=== PATIENT | female | born 1990 | race Caucasian/White ===

== ENCOUNTER 2024-10-16 09:23 | Emergency (ER) | payer OTHER, SELFPAY ==
[2024-10-16 09:26] VITALS: BP 119/75
--- NOTE | 2024-10-16 11:10 | ED.GENMED ---
History of Present Illness
General
Chief Complaint: Fever
Time Seen by Provider: 10/16/24 10:45
History of Present Illness
History of Present Illness:
34-year-old female, currently 13 weeks gestational age presents to the emergency department for evaluation of fever chills, right-sided low back pain, nasal congestion, coughing beginning last night. She is primarily concerned about the low back
pain given her . Denies any anterior abdominal pain, pelvic pain, or vaginal discharge/bleeding. No dyspnea. Family member ill with similar symptoms recently. Did take Tylenol at 3 AM today
Past History
Past History
ED Past Medical History: None and Other (Patient wears contacts and has seasonal allergies )
ED Past Surgical History: Other (Patient has a history of wisdom teeth extraction )
Social History
Tobacco: Non-smoker
Alcohol: None
Drug: None
Personal: Single
Living: with family
Review of Systems
Review of Systems
Allergies reviewed?: Yes
All Other Systems: ROS reviewed and negative except as documented in HPI and ROS
Phy Exam
Physical Exam
Physical Exam:
GEN: Well appearing, NAD, WDWN
HEENT: Oral mucosa moist, no scleral icterus
Cardiac: Mildly tachycardic, regular
Lung: No respiratory distress, no tachypnea, lungs clear to auscultation bilaterally
MSK: No gross deformity or injuries. Negative CVA tenderness bilaterally, normal lumbar range of motion
Skin: Good color, no pallor or jaundice, no rashes
Neuro: AO x3, moves all extremities freely
Psych: Calm, cooperative
Course
Orders/Labs/Results
Orders:
Orders
10/16/24 11:06
Acetaminophen [Tylenol] 1,000 mg PO NOW STA
10/16/24 11:14
COVID-19 Antigen Urgent
Source: Nasal Swab
Urinalysis Reflex To Culture Urgent
Date Specimen was Collected: 10/16/24
Time Specimen was Collected: 11:07
Influenza A+B Rapid Molecular Urgent
AILEEN Source: Nasal Swab
Specimen Description:
Abnormal Lab Results
10/16/24
11:14
Urine Ketones 2+ A
(Negative)
Vital Signs
Initial and Last Documented VS:
Initial Vital Signs
Temp Pulse Resp BP Pulse Ox
98.3 F 110 16 119/75 100
10/16/24 09:26 10/16/24 09:26 10/16/24 09:26 10/16/24 09:26 10/16/24 09:26
Last Documented Vital Signs
Temp Pulse Resp BP Pulse Ox
98.3 F 110 18 119/75 100
10/16/24 09:26 10/16/24 09:26 10/16/24 11:17 10/16/24 09:26 10/16/24 09:26
MDM/Problems Addressed
MDM/Problems Addressed:
Patient is positive for flu A, no urinary symptoms and urine is bland. Discussed supportive care. Tamiflu is class C, discussed risk with patient and through shared decision making we declined to administer this.
*Critical Care Note
Total Time (30-74mins, 75-104mins- exclusive of procedures): Not Applicable
ED Attending Note
-
Portions of this chart may have been created with voice recognition software.� Occasional wrong word or��sound alike� substitutions may have occurred due to the inherent limitations of voice recognition software.
Discharge Plan
Departure
Patient Disposition: Home (Routine Discharge)
Date of Disposition: 10/16/24
Time of Disposition: 11:43
Patient with high blood pressure during this ER visit?: No
Discharge Problem:
Influenza A
Instructions: Flu in adults - Discharge instructions
Prescriptions:
No Action
[id number] fum-folic 1 EACH tablet
1 ea PO DAILY
acetaminophen 325 MG tablet
650 mg PO Q4HPRN PRN (Reason: mild pain) 0RF
ibuprofen 600 MG tablet
600 mg PO Q4HPRN PRN (Reason: moderate pain/cramps) 0RF
cephalexin 500 MG capsule
500 mg PO QID Qty: 28 0RF
Referrals:
UNKNOWN - PT NOT,INTERVIEWE [Family Provider] -
Activity Restrictions/Additional Instructions:
Influenza can increase risk for delivery and miscarriage. If you develop abdominal/pelvic pain and/or vaginal bleeding, please follow up with your OBGYN or in the Emergency Department
Interventions
Interventions:
*Risk Screen - Suicide Last Done: 10/16/24 09:29
*General Assessment Last Done: 10/16/24 11:17
*Neglect/Abuse Screening Last Done: 10/16/24 09:29
ED- Fall Risk Assessment Last Done: 10/16/24 11:52
*ED COVID-19 Vaccine History Last Done: 10/16/24 11:17
*Nursing Disposition Last Done: 10/16/24 11:52
ED- Neurological Assessment Last Done: 10/16/24 11:17
ED-Skin Assessment Last Done: 10/16/24 11:17
Discharge Date and Time
Discharge Date/Time: 10/16/24 11:55
Print Language: MAORI
[2024-10-16] MEDS: TYLENOL 1000 MG PO (11:13)
[2024-10-16 11:27] LABS: Urine Albumin Trace (Neg - Trace); Urine Bilirubin Negative (Negative); Urine Character Clear (Clear); Urine Color Yellow; Urine Glucose Negative (Negative); Urine Ketone 2+ (Negative); Urine Leukocyte Negative (Negative); Urine Nitrite Negative (Negative); Urine Occult Blood Negative (Negative); Urine Urobilinogen Negative (Neg - 1+)
[2024-10-16 11:41] LABS: COVID-19 Antigen Negative (Negative)
== END 2024-10-16 11:55 | disposition home or self-care (01) ==
LOC: EMR 09:23
PROVIDERS: Physician Assistant; EMERGENCY PHYSICIAN Emergency Medicine
DX: O98.511 Other viral diseases complicating pregnancy, first trimester (principal); J10.1 Influenza due to other identified influenza virus with other respiratory manifestations; Z3A.13 13 weeks gestation of pregnancy
CPT/HCPCS: 99283; 81003; 87502; 87811

== ENCOUNTER 2025-02-22 14:52 | Emergency (ER) | payer OTHER, SELFPAY ==
[2025-02-22 14:58] VITALS: BP 137/86
--- NOTE | 2025-02-22 15:57 | ED.SKININJ ---
HPI-Injury
General
Chief Complaint: Bite
Source: patient
Exam Limitations: none
Time Seen by Provider: 02/22/25 15:48
Nursing documentation reviewed up to this point in time: agreed with
History of Present Illness-Injury
Is this injury a work related problem?: No
Is pt an associate of [facility]?: No
Initial Injury comments:
Patient states she was approaching her car and squirrels jumped out of her wheel-well onto her leg. Sustained a small abrasion to left ant. thigh. Incident occurred just REVIEW NURSE.
Past History
Past History
ED Past Medical History: None and Other (Patient wears contacts and has seasonal allergies )
ED Past Surgical History: Other (Patient has a history of wisdom teeth extraction )
Social History
Tobacco: Non-smoker
Alcohol: None
Drug: None
Personal: Single
Living: with family
Review of Systems
Review of Systems
Allergies reviewed?: Yes
All Other Systems: ROS reviewed and negative except as documented in HPI and ROS
Constitutional: Reports no symptoms
Musculoskeletal: Reports no symptoms
Skin: Reports other (abrasion - squirrel scratch left ant. thigh)
Neurological: Reports no symptoms
Psychiatric: Reports no symptoms
Phy Exam
General Physical Exam
General Presentation: well appearing and no apparent distress
General age: appears stated age
General Skin: warm and dry
General Habitus: normal
General Mental: alert
Musculoskeletal Exam
Musculoskeletal Exam: full ROM and neuro vasc intact
Skin Exam
Skin Exam: normal color, warm/dry, no rash and other (3 tiny abrasions noted to left ant. thigh. No redness or swelling.)
Psychiatric Exam
Psychiatric Exam: normal mood/affect
Course
Vital Signs
Initial and Last Documented VS:
Initial Vital Signs
Temp Pulse Resp BP Pulse Ox
98 F 98 16 137/86 97
02/22/25 14:58 02/22/25 14:58 02/22/25 14:58 02/22/25 14:58 02/22/25 14:58
Last Documented Vital Signs
Temp Pulse Resp BP Pulse Ox
98 F 98 16 137/86 97
02/22/25 14:58 02/22/25 14:58 02/22/25 14:58 02/22/25 14:58 02/22/25 14:58
*Critical Care Note
Total Time (30-74mins, 75-104mins- exclusive of procedures): Not Applicable
Update Note
Update Note:
Patient to ED for eval after a squirrel jumped onto her leg. SHe sustained 3 small superficial abrasions to left thigh. No redness swelling or discharged. Reviewed with her that there have been no documented cases of rabies transmission from
squirrel to human documented. The risk of rabies is extremely low and that rabies vaccine is not indicated (UTD). She is understanding and comfortable with this. She will continue basic wound care and follow up with PCP as needed.
ED Attending Note
-
Portions of this chart may have been created with voice recognition software.� Occasional wrong word or��sound alike� substitutions may have occurred due to the inherent limitations of voice recognition software.
Discharge Plan
Departure
Patient Disposition: Home (Routine Discharge)
Date of Disposition: 02/22/25
Time of Disposition: 15:55
Patient with high blood pressure during this ER visit?: No
Condition: Good
Covid-19: Not Applicable
Discharge Problem:
Other contact with squirrel, initial encounter
Instructions: Wound Care (DC), Abrasions - ED discharge instructions
Prescriptions:
No Action
[id number] fum-folic 1 EACH tablet
1 ea PO DAILY
acetaminophen 325 MG tablet
650 mg PO Q4HPRN PRN (Reason: mild pain) 0RF
ibuprofen 600 MG tablet
600 mg PO Q4HPRN PRN (Reason: moderate pain/cramps) 0RF
cephalexin 500 MG capsule
500 mg PO QID Qty: 28 0RF
Referrals:
Nicole Manuel CRNP [Family Provider] - Follow up in 2-3 days
Interventions
Interventions:
*Risk Screen - Suicide Last Done: 02/22/25 14:59
*General Assessment Last Done: 02/22/25 15:49
*Neglect/Abuse Screening Last Done: 02/22/25 14:59
*ED- Fall Risk Assessment Last Done: 02/22/25 15:49
*ED COVID-19 Vaccine History Last Done: 02/22/25 15:49
ED-Skin Assessment Last Done: 02/22/25 15:50
Discharge Date and Time
Print Language: SETSWANA
== END 2025-02-22 16:08 | disposition home or self-care (01) ==
LOC: EMR 14:52
PROVIDERS: EMERGENCY PHYSICIAN Student in an Organized Health Care Education/Training Program; FAMILY PHYSICIAN Nurse Practitioner
DX: S70.312A Abrasion, left thigh, initial encounter (principal); W53.29XA Other contact with squirrel, initial encounter
CPT/HCPCS: 99282

== ENCOUNTER 2025-04-20 12:53 | Inpatient (IN) | payer OTHER, SELFPAY ==
[2025-04-20 13:03] VITALS: BP 118/73; BMI 31.9
[2025-04-20] MEDS: LR 1000 IV ×2 (13:15→14:42)
[2025-04-20 13:36] LABS: % Basophils 0.4 % (0-2); % Eosinophils 1.3 % (0-6); % Immature Granulocytes 0.7 % (0-0.5); % Lymphocytes 14.6 % (20.5-51.1); % Monocytes 8.5 % (1.7-9.3); % Neutrophils 74.5 % (42.2-75.2); Absolute Basophils 0.1 10^3/uL (0-0.2); Absolute Eosinophils 0.2 10^3/uL (0-0.7); Absolute Immature Granulocytes 0.1 10^3/uL (0-0.05); Absolute Monocytes 1.2 10^3/uL (0.1-0.6); Absolute Neutrophils 10.1 10^3/uL (1.4-6.5); Hematocrit 33.6 % (37.0-47.0); Hemoglobin 11.6 g/dL (12.0-16.0); Mean Corp Hgb Conc. 34.5 g/dL (33.0-37.0); Mean Corpuscular Hgb 29.7 pg (27.0-31.0); Mean Corpuscular Volume 85.9 fL (81.0-99.0); Mean Platelet Volume 10.3 fL (7.4-10.4); Nucleated Red Blood Cells % 0 %; Platelet Count 263 10^3/uL (130-400); Red Blood Cell Count 3.91 10^6/uL (4.20-5.40); Red Cell Dist. Width 12.5 % (11.5-14.5); White Blood Cell Count 13.5 10^3/uL (4.8-10.8)
[2025-04-20] MEDS: PENICILLIN 110 UNITS IV (13:44)
[2025-04-20] MEDS: PITOCIN 30 UNITS/NSS 500 ML IV (14:30)
[2025-04-20] MEDS: XYLOCAINE-MPF 1% VIAL 30 ML INFIL (14:35)
[2025-04-20] MEDS: TORADOL 15 MG IV (15:16)
[2025-04-20] MEDS: METHERGINE INJECTION 0.2 MG IM (16:05)
[2025-04-20] MEDS: MORPHINE SULFATE 2 MG IV (16:34)
[2025-04-20] MEDS: TRANEXAMIC ACID 100 IV (17:00)
[2025-04-20] MEDS: XYLOCAINE-MPF 1% VIAL 10 ML INFIL (17:29)
[2025-04-20 18:10] LABS: ALT (SGPT) 35 U/L (0-35); AST (SGOT) 37 U/L (14-36); Albumin 3.5 g/dl (3.5-5.0); Alkaline Phosphatase 90 U/L (38-126); Blood Urea Nitrogen 7 mg/dl (7-17); Carbon Dioxide 18 mmol/L (22-30); Chloride 109 mmol/L (98-107); Estimated Creatinine Clearance > 125 ml/min; Glucose 123 mg/dl (70-99); Potassium 4.2 mmol/L (3.5-5.1); Sodium 135 mmol/L (135-145); Total Bilirubin 0.3 mg/dl (0.2-1.3); Total Protein 6.3 g/dl (6.3-8.2); eGFR > 60.00
[2025-04-20 18:14] LABS: Protein/creatinine Ratio 0.9; Urine Protein 12 mg/dl
[2025-04-21] MEDS: MOTRIN 600 MG PO ×3 (00:26→16:53)
[2025-04-21] MEDS: TYLENOL 650 MG PO ×3 (00:27→16:52)
[2025-04-21 04:43] LABS: Hemoglobin 9.8 g/dL (12.0-16.0)
[2025-04-21] MEDS: PRENATAL PLUS 1 TABLET PO (08:53)
[2025-04-22] MEDS: TYLENOL 650 MG PO (07:54)
[2025-04-22] MEDS: PRENATAL PLUS 1 TABLET PO (07:54)
[2025-04-22] MEDS: SENOKOT-S 1 TABLET PO (07:54)
[2025-04-22] MEDS: MOTRIN 600 MG PO (07:54)
[2025-04-22 12:04] LABS: Syphilis/T. pallidum Ab Reflex Negative (Negative)
== END 2025-04-22 11:21 | disposition home or self-care (01) | DRG 807 ==
LOC: LDRP 12:53
PROVIDERS: ADMITTING PHYSICIAN Student in an Organized Health Care Education/Training Program; FAMILY PHYSICIAN Nurse Practitioner
PROC: 0HQ9XZZ Repair Perineum Skin, External Approach (ICD-10-PCS; 2025-04-20)
PROC: 0KQM0ZZ Repair Perineum Muscle, Open Approach (ICD-10-PCS; 2025-04-20)
PROC: 10E0XZZ Delivery of Products of Conception, External Approach (ICD-10-PCS; 2025-04-20)
DX: O99.824 Streptococcus B carrier state complicating childbirth (principal); Z37.0 Single live birth; Z3A.39 39 weeks gestation of pregnancy; O70.1 Second degree perineal laceration during delivery; O90.1 Disruption of perineal obstetric wound; O72.1 Other immediate postpartum hemorrhage
CPT/HCPCS: 36415; 80053; 82570; 84156; 85014; 85018; 85025; 86780; 86850; 86900; 86901